=== PATIENT | female | born 1950 | race Caucasian/White ===

== ENCOUNTER → 2016-12-11 | Outpatient (CLI) | payer OTHER, MEDICARE ==
[~2016-12-11] VITALS: Ht 157.5 cm; Wt 53.5 kg
[~2016-12-11] MED LIST: AMOXICILLIN500 MG PO; ATIVAN1 MG PO; CENTRUM SILVER1 EAC4 PO; CIPRO500 MG PO; CLONAZEPAM1 MG PO; FLAGYL500 MG PO; LIPITOR20 MG PO; NORTRIPTYLINE H10 MG PO; NORVASC5 MG PO; RISPERIDONE1 MG PO; SPIRIVA1 INHALATI IH; SYMBICORT60 INHALAT IH; ZANTAC300 MG PO
[2016-12-11 10:29] LABS: HEMATOCRIT 44.6 % (36.0-46.0); MCH 32.6 PG (29.0-34.0); MCHC 34.5 G/DL (30.0-36.0); MCV 94.3 FL (83-99); MEAN PLAT.VOLUME 9.8 uM^3 (9.5-12.4); PLATELET COUNT 253 K/uL (156-360); RBC DIS.WIDTH-CV 12.5 % (11.8-14.6); RED BLOOD COUNT 4.73 M/uL (3.80-5.20); WHITE BLOOD COUNT 7.1 K/uL (4.1-10.2)
[2016-12-11 10:42] LABS: INTER. NORMALIZED RATIO 1.1; PROTHROMBIN TIME 10.7 (9.2-11.2)
== END | disposition home or self-care (01) ==
LOC: OPR 09:50 → EDSTATUS 10:00
PROVIDERS: Family Medicine
PROC: 0BBG3ZX Excision of Left Upper Lung Lobe, Percutaneous Approach, Diagnostic (ICD-10-PCS; principal; 2016-12-11)
DX: C34.12 Malignant neoplasm of upper lobe, left bronchus or lung (principal); J44.9 Chronic obstructive pulmonary disease, unspecified; E78.5 Hyperlipidemia, unspecified; G47.33 Obstructive sleep apnea (adult) (pediatric); Z87.891 Personal history of nicotine dependence; Z88.0 Allergy status to penicillin
CPT/HCPCS: 71010; 77012; 85027; 85610; 85730; 88305; 88341 TC; 88342 TC; J3010